=== PATIENT | male | born 2000 | race Caucasian/White ===

== ENCOUNTER 2024-08-16 00:42 | Emergency (ER) | payer OTHER, SELFPAY ==
[~2024-08-16] VITALS: Ht 177.8 cm; Wt 63.6 kg
[2024-08-16] MEDS: IPRATROPIUM 0.5MG/ALBUTEROL 2.5MG INH SOL UD 3ML (DUONEB) NEB STA (02:01)
[2024-08-16 02:21] LABS: BASO # 0.1 10^3/uL (0.0-0.2); BASO % 0.5 % (0.0-1.0); EOS # 0.2 10^3/uL (0.0-0.5); EOS % 1.5 % (0.0-3.0); HEMOGLOBIN 16.4 g/dl (13.5-17.5); LYMPH # 0.9 10^3/uL (1.5-5.0); LYMPH % 5.3 % (24.0-44.0); MEAN CORPUSCULAR HEMOGLOBIN 30.5 pg (27.0-33.0); MEAN CORPUSCULAR HGB CONC 34.9 g/dl (32.0-36.5); MEAN CORPUSCULAR VOLUME 87.5 fl (80.0-96.0); MONO # 1.2 10^3/uL (0.0-0.8); MONO % 7.5 % (2.0-8.0); NEUTROPHILS # 13.6 10^3/uL (1.5-8.5); NEUTROPHILS % 84.7 % (36.0-66.0); PLATELET COUNT, AUTOMATED 313 10^3/uL (150-450); RED BLOOD COUNT 5.37 10^6/uL (4.30-6.10); WHITE BLOOD COUNT 16.1 10^3/uL (4.0-10.0)
[2024-08-16 02:36] LABS: ABG BASE EXCESS -2.6 (-2.0-2.0); ABG HCO3 20.2 MMOL/L (22.0-26.0); ABG O2 SATURATION 95.8 % (95.0-99.0); ABG PARTIAL PRESSURE CO2 30.6 mmHg (35.0-45.0); ABG PARTIAL PRESSURE O2 72.7 mmHg (75.0-100.0); ABG STANDARD HCO3 22.3 MMOL/L. (22.0-26.0); ABG TOTAL CO2 21.2 MMOL/L (22.0-29.0); ABG pH (ARTERIAL) 7.438 UNITS (7.350-7.450)
[2024-08-16 02:52] LABS: BLOOD UREA NITROGEN 10 MG/DL (9-23); CALCIUM LEVEL 9.8 MG/DL (8.5-10.1); CARBON DIOXIDE LEVEL 27 MMOL/L (20-31); CHLORIDE LEVEL 101 MMOL/L (98-107); CK-MB VALUE MASS < 1.0 NG/ML (<3.6); GLOMERULAR FILTRATION RATE > 60.0 (>60); GLUCOSE, FASTING 95 MG/DL (60-100); POTASSIUM SERUM 4.2 MMOL/L (3.5-5.1); SODIUM LEVEL 139 MMOL/L (136-145)
[2024-08-16] MEDS: BUDESONIDE 0.5 MG/2 ML INHALATION SUSPENSION NEB ONE (02:55)
[2024-08-16] MEDS: IPRATROPIUM 0.02% SOLN 0.5MG 2.5ML NEB INH ONE (02:55)
[2024-08-16] MEDS: ALBUTEROL SULFATE 2.5MG/0.5ML INH NEB SOLN INH ONE (02:55)
[2024-08-16 03:00] LABS: CPK CREATINE PHOSPHOKINASE 114 U/L (46-171); MB/CK RELATIVE INDEX 0.87 (< OR =4)
[2024-08-16] MEDS: MAG SULF 1GM/100ML (MAG RUN) 1 GM in IV 1 EA IV ONE (03:02)
[2024-08-16] MEDS: methylPREDNISolone 125MG 2ML VIAL IV ONE (03:02)
[2024-08-16] MEDS ORDERED: PRED20TA PO (04:34)
[2024-08-16] MEDS: ALBUTEROL 90 MCG/ACT 8GM HFA INHALER INH ONE (04:59)
[2024-08-16 05:00] VITALS: BP 132/60; TEMP 98.9; O2SAT 95
== END 2024-08-16 05:00 | disposition home or self-care (01) ==
LOC: M ED 00:42
DX: J45.909 Unspecified asthma, uncomplicated (principal); B34.1 Enterovirus infection, unspecified; R00.0 Tachycardia, unspecified; F17.290 Nicotine dependence, other tobacco product, uncomplicated; F12.10 Cannabis abuse, uncomplicated; Z79.52 Long term (current) use of systemic steroids
CPT/HCPCS: 36600; 71046; 80048; 82550; 82553; 82803; 84484; 85025; 87486; 87581; 87633; 87798; 93005; 94640; 94760; 96365; 96375; 99284; J2919; J3475